=== PATIENT | male | born 1945 | race Caucasian/White ===

== ENCOUNTER 2016-10-21 07:39 | Emergency (ER) | payer OTHER ==
[2016-10-21 07:41] VITALS: BP 157/72; PULSE 69; RESP 17; TEMP 97.8; O2SAT 98
--- NOTE | 2016-10-21 07:51 | PD ---
HPI Chief Complaint: Complaint Time Seen by Provider: 07:51 Travel History International Travel<30 days: No Contact w/Intl Traveler<30days: No Traveled to known affect area: No History of Present Illness HPI 71-year-old male came to the emergency room with history of urinary retention. He last urinated 14 hours ago. Patient says he has history of prostate cancer and his urologist is in [place]. This has never happened to him in the past. He seems uncomfortable. REPLACED BY [facility] Past Medical History Narrative Medical List of his past medical history as reviewed from the nursing note. Social History Tobacco Use: No Allergies-Medications (Allergen,Severity, Reaction): Coded Allergies: No Known Allergies (Unverified , 10/21/16) Comments Awaiting for the nurse to put in his allergies. Reported Meds & Prescriptions Reported Meds & Active Scripts Active Reported Lisinopril 2.5 Mg Tab Unknown Dose PO DAILY Narrative Medication Awaiting for the nurse to do medical consideration. Review of Systems Except as stated in HPI: all other systems reviewed are Neg Physical Exam Narrative GENERAL: Awake, alert, moderate distress SKIN: Warm and dry. HEAD: Atraumatic. Normocephalic. EYES: Pupils equal and round. No scleral icterus. No injection or drainage. ENT: No nasal bleeding or discharge. Mucous membranes pink and moist. NECK: Trachea midline. No JVD. CARDIOVASCULAR: Regular rate and rhythm. No murmur appreciated. RESPIRATORY: No accessory muscle use. Clear to auscultation. Breath sounds equal bilaterally. GASTROINTESTINAL: Abdomen soft, abdomen is distended and a mass starting from the suprapubic region going above the umbilicus can be felt which is tender to touch and seems like the distended bladder. Hepatic and splenic margins not palpable. MUSCULOSKELETAL: No obvious deformities. No clubbing. No cyanosis. No edema. NEUROLOGICAL: Awake and alert. No obvious cranial nerve deficits. Motor grossly within normal limits. Normal speech. PSYCHIATRIC: Appropriate mood and affect; insight and judgment normal. Data Data Last Documented VS Vital Signs Date Time Temp Pulse Resp B/P Pulse Ox O2 Delivery O2 Flow Rate FiO2 10/21/16 07:41 97.8 69 17 157/72 98 Orders Urinary Catheter Insert/Apply (10/21/16 07:53) Urinalysis - C+S If Indicated (10/21/16 07:53) Bag, Leg 32oz Sterile Large Ea (10/21/16 07:53) Labs Laboratory Tests Test 10/21/16 07:59 Urine Color LIGHT-YELLOW Urine Turbidity CLEAR Urine pH 5.5 Urine Specific [place] 1.008 Urine Protein NEG mg/dL Urine Glucose (UA) NEG mg/dL Urine Ketones NEG mg/dL Urine Occult Blood NEG Urine Nitrite NEG Urine Bilirubin NEG Urine Urobilinogen LESS THAN 2.0 MG/DL Urine Leukocyte Esterase NEG Urine Mucus FEW /lpf Microscopic Urinalysis Comment CULT NOT INDICATED MDM Medical Decision Making Medical Screen Exam Complete: Yes Emergency Medical Condition: Yes Medical Record Reviewed: Yes Differential Diagnosis Urinary retention secondary to enlarged prostate, UTI Narrative Course 7:56 AM the nurse is putting a Carrasco catheter in. I explained to the patient that he would have to go home with a catheter and a leg pack. The nurse will teach him to take care of the Carrasco catheter. Patient will contact his urologist as an outpatient and follow-up. Awaiting for the urine analysis. 8:27 AM the catheter was successful and patient has put out more than a liter of urine is out so far. UA has come back and within normal limit. I will discharge him home with a leg back. The nurse has given him the instructions to take care of the catheter and the leg bag. Procedures EKG Prior to Arrival: No Diagnosis Primary Impression: Bladder retention of urine Referrals: Primary Care Physician 2 days Additional Instructions: Please follow-up with your urologist and primary care regarding the catheter management and further workup regarding the obstruction. Please follow the instructions of the nurse for the catheter in the leg bag care. Return to the ER if the condition worsens or any other new concerns. Med/Other Pt SpecificInfo: No Change to Meds Disposition: 01 DISCHARGE HOME Condition: Stable Raquel Carrillo MD Oct 21, 2016 07:51 Raquel Carrillo MD Oct 21, 2016 07:51
[2016-10-21] MEDS ORDERED: LISI2.5T3 PO (07:55)
[2016-10-21 08:25] LABS: BLOOD, URINE NEG (NEG); COMMENT (UR) CULT NOT INDICATED; CULTURE IF INDICATED CULT NOT INDICATED; GLUCOSE,URINE NEG (NEG); KETONE, URINE NEG (NEG); MUCUS URINE FEW /lpf (OCC); NITRITE,URINE NEG (NEG); PH, URINE 5.5 (5.0-8.5); URINE COLOR LIGHT-YELLOW (YELLW/STRAW)
== END 2016-10-21 09:44 | disposition home or self-care (01) ==
LOC: NEPE 07:39
DX: R33.9 Retention of urine, unspecified (principal); Z85.46 Personal history of malignant neoplasm of prostate
CPT/HCPCS: 51702; 81001